=== PATIENT | female | born 1975 | race Caucasian/White ===

== ENCOUNTER 2019-02-24 16:00 | Emergency (ER) | payer OTHER ==
[~2019-02-24] VITALS: Ht 160 cm; Wt 62.6 kg
[2019-02-24 16:07] VITALS: BP 133/68
--- NOTE | 2019-02-24 16:20 | NUR ---
SUDDEN ONSET OF RIGHT SIDED LOWER BACK PAIN X TODAY DENIES INJURY/TRAUMA---NO DISCOLORATION 0R FLANK TENDERNESS NOTED AT THIS TIME
[2019-02-24] MEDS ORDERED: ACETAMINOPHEN 325 MG TAB PO ONE (16:25)
[2019-02-24] MEDS ORDERED: PANTOPRAZOLE 40 MG TABEC PO ONE (16:25)
[2019-02-24 17:22] VITALS: BP 123/64
--- NOTE | 2019-02-24 17:22 | NUR ---
Patient discharged with v/s stable. Written and verbal after care instructions given and explained. Patient alert, oriented and verbalized understanding of instructions. Ambulatory with steady gait. All questions addressed prior to discharge. ID band removed. Patient advised to follow up with PMD. Rx of miralax, keflex, docusate given. Patient educated on indication of medication including possible reaction and side effects. Opportunity to ask questions provided and answered.
== END 2019-02-24 17:22 | disposition home or self-care (01) ==
LOC: MED 16:00
DX: N39.0 Urinary tract infection, site not specified (principal); K59.00 Constipation, unspecified
CPT/HCPCS: 74018; 81002; 81025; 99283; Q0092

== ENCOUNTER 2019-02-26 11:15 | Emergency (ER) | payer OTHER ==
[~2019-02-26] VITALS: Ht 160 cm; Wt 62.6 kg
--- NOTE | 2019-02-26 11:17 | NUR ---
PATIENT AMBULATED TO BED 6 AT THIS TIME.
[2019-02-26 11:22] VITALS: BP 141/75
--- NOTE | 2019-02-26 11:36 | NUR ---
PT PRESENTS TO ED WITH C/O RT LOWER BACK PAIN X 2 DAYS. PT WAS SEEN BY ER MD ON SATURDAY FOR THE SAME S/SX, TREATING WITH ATB. TODAY PAIN RAIDATES TO RLQ ABDOMINAL PAIN. PT DIDN'T KNOW WHAT IS THE DX. AAO X4, GCS 15, AMBULATORY WITH STDEAY GAIT. RESPRIATIONS EVEN AND UNLABORED, BL LUNG CLEAR. SKIN WARM/PINK/DRY, +PMSC. ABDOMEN SOFT, NON DISTENDED, ACTIVE BOWEL SOUND X4. STATED PAIN 9/10, VS WNL. MADE AWRE OF PT STATUS. WILL CONTINUE TO MONITOR
--- NOTE | 2019-02-26 12:10 | NUR ---
PT BEING EVALUATED BY ER AT THIS TIME.
[2019-02-26] MEDS ORDERED: KETOROLAC 60 MG/2 ML VIAL IM ONE (12:30)
--- NOTE | 2019-02-26 12:47 | NUR ---
Patient discharged with v/s stable. Written and verbal after care instructions given and explained. Patient alert, oriented and verbalized understanding of instructions. Ambulatory with steady gait. All questions addressed prior to discharge. ID band removed. Patient advised to follow up with PMD. Rx oMOTRIN 800 MG, LACTULOSE 10 GM/15 ML, MINERAL OIL given. Patient educated on indication of medication including possible reaction and side effects. Opportunity to ask questions provided and answered.
[2019-02-26 12:48] VITALS: BP 124/79
== END 2019-02-26 12:47 | disposition home or self-care (01) ==
LOC: MED 11:15
DX: R10.9 Unspecified abdominal pain (principal); K59.00 Constipation, unspecified
CPT/HCPCS: 81002; 81025; 96372; 99283; J1885

== ENCOUNTER 2019-03-03 20:52 | Emergency (ER) | payer OTHER ==
[~2019-03-03] VITALS: Ht 160 cm; Wt 64.0 kg
[2019-03-03 21:04] VITALS: BP 146/70
--- NOTE | 2019-03-03 21:08 | NUR ---
PT AMBULATED TO BED #4
[2019-03-03] MEDS ORDERED: KETOROLAC 30 MG/ML VIAL IVP ONE (21:10)
--- NOTE | 2019-03-03 21:10 | NUR ---
PT C/O ABDOMINAL PAIN X 1 WEEK. PT WAS IN ER LAST WEEK WITH PAIN. PT HAS TRAVELED FROMRIGHT SIDE TO LEFT SIDE. DENIES N/V/D NO CONSTIPATION. PATIENT DENIES FEVERS, CP, SOB, COUGH. BED IN LOW LOCKED POSITION.
[2019-03-03 21:46] LABS: APPEARANCE,URINE CLEAR (CLEAR); BILIRUBIN,URINE NEGATIVE (NEGATIVE); BLOOD, URINE 3+ (NEGATIVE); COLOR,URINE YELLOW (YELLOW); LEUKOCYTE ESTERASE ,URINE TRACE (NEGATIVE); NITRITE, URINE NEGATIVE (NEGATIVE); UGLUCOSE NEGATIVE (NEGATIVE)
[2019-03-03 21:46] LABS: BASOPHILS % (AUTO) 0.4 % (0.0-2.0); EOSINOPHILS % (AUTO) 0.3 % (0.0-4.0); HEMATOCRIT 37.6 % (36-48); HEMOGLOBIN 12.5 g/dL (12.0-16.0); LYMPHOCYTES # (AUTO) 2.5 K/uL (2.5-16.5); LYMPHOCYTES % (AUTO) 35.7 % (20.5-51.1); MEAN CORPUSCULAR HEMOGLOBIN 29 pg (27-31); MEAN CORPUSCULAR HGB CONC 33 g/dL (33-37); MEAN CORPUSCULAR VOLUME 86.1 fL (80-94); MONOCYTES # (AUTO) 0.5 K/uL (0.8-1.0); MONOCYTES % (AUTO) 7.5 % (1.7-9.3); NEUTROPHILS % (AUTO) 56.1 % (42.2-75.2); PLATELET COUNT (AUTO) 209 K/uL (140-450); RED BLOOD CELL COUNT(AUTO) 4.37 MIL/uL (4.20-5.40); RED CELL DISTRIBUTION WIDTH 13.2 % (11.6-13.7); WHITE BLOOD COUNT (AUTO) 7.1 K/uL (4.8-10.8)
--- NOTE | 2019-03-03 21:48 | NUR ---
PT TAKEN TO CT
[2019-03-03 21:54] LABS: ANION GAP 17.9 (8-16); CARBON DIOXIDE 20.5 mmol/L (21-32); CREATININE 0.8 mg/dL (0.6-1.3); POTASSIUM 3.4 mmol/L (3.5-5.1)
--- NOTE | 2019-03-03 21:59 | NUR ---
PT RETURN FROM CT
[2019-03-03 22:00] LABS: ALBUMIN 4.3 g/dL (3.4-5.0); TOTAL BILIRUBIN 0.4 mg/dL (0.0-1.0)
--- NOTE | 2019-03-03 22:16 | NUR ---
PATIENT STATES PAIN HAS IMPROVED AFTER TORADOL. 02/13.
[2019-03-03 22:35] LABS: RBC,URINE 20-50 /HPF (0-5)
--- NOTE | 2019-03-03 23:24 | NUR ---
Dr. Muñiz evaluating patient at bedside.
[2019-03-03 23:57] VITALS: BP 128/68
--- NOTE | 2019-03-03 23:58 | NUR ---
Patient discharged with v/s stable. Written and verbal after care instructions given and explained. Patient alert, oriented and verbalized understanding of instructions. Ambulatory with steady gait. All questions addressed prior to discharge. ID band removed. Patient advised to follow up with PMD. Rx of NORCO, MOTRIN given. Patient educated on indication of medication including possible reaction and side effects. Opportunity to ask questions provided and answered.
== END 2019-03-03 23:58 | disposition home or self-care (01) ==
LOC: MED 20:52
DX: R10.11 Right upper quadrant pain (principal); R10.12 Left upper quadrant pain; Z98.890 Other specified postprocedural states
CPT/HCPCS: 36415; 74176; 80053; 81001; 81025; 83690; 85025; 87086; 96374; 99284; J1885

== ENCOUNTER 2019-03-27 16:09 | Emergency (ER) | payer OTHER ==
[~2019-03-27] VITALS: Ht 160 cm; Wt 64.0 kg
[2019-03-27 16:14] VITALS: BP 139/56
--- NOTE | 2019-03-27 16:45 | NUR ---
Patient ambulated to bed 4 with family. RN evaluating patient at bedside.
--- NOTE | 2019-03-27 16:46 | NUR ---
C/O ABDOMINAL PAIN RADIATING TO SHOULDER AND BACK X3 DAYS . DENIES N/V/D; SKIN IS PINK/WARM/DRY; AAOX4 WITH EVEN AND STEADY GAIT; LUNGS CLEAR BL; HR EVEN AND REGULAR; PT DENIES ANY FEVER, CP, SOB, OR COUGH AT THIS TIME; PATIENT STATES PAIN OF 10/10 AT THIS TIME; VSS; PATIENT POSITIONED FOR COMFORT; HOB ELEVATED; BEDRAILS UP X2; BED DOWN. ER MD MADE AWARE OF PT STATUS.
[2019-03-27 17:04] LABS: BASOPHILS % (AUTO) 0.4 % (0.0-2.0); EOSINOPHILS % (AUTO) 0.3 % (0.0-4.0); HEMATOCRIT 38.5 % (36-48); HEMOGLOBIN 12.8 g/dL (12.0-16.0); LYMPHOCYTES # (AUTO) 1.4 K/uL (2.5-16.5); LYMPHOCYTES % (AUTO) 17.7 % (20.5-51.1); MEAN CORPUSCULAR HEMOGLOBIN 29 pg (27-31); MEAN CORPUSCULAR HGB CONC 33 g/dL (33-37); MONOCYTES # (AUTO) 0.5 K/uL (0.8-1.0); MONOCYTES % (AUTO) 5.8 % (1.7-9.3); NEUTROPHILS # (AUTO) 6.2 K/uL (1.8-7.7); NEUTROPHILS % (AUTO) 75.8 % (42.2-75.2); PLATELET COUNT (AUTO) 172 K/uL (140-450); RED BLOOD CELL COUNT(AUTO) 4.43 MIL/uL (4.20-5.40); RED CELL DISTRIBUTION WIDTH 13.4 % (11.6-13.7); WHITE BLOOD COUNT (AUTO) 8.1 K/uL (4.8-10.8)
[2019-03-27 17:06] LABS: APPEARANCE,URINE HAZY (CLEAR); BILIRUBIN,URINE NEGATIVE (NEGATIVE); BLOOD, URINE 3+ (NEGATIVE); COLOR,URINE YELLOW (YELLOW); LEUKOCYTE ESTERASE ,URINE NEGATIVE (NEGATIVE); NITRITE, URINE NEGATIVE (NEGATIVE); UGLUCOSE NEGATIVE (NEGATIVE)
[2019-03-27 17:17] LABS: ALBUMIN 4.1 g/dL (3.4-5.0); ANION GAP 18.1 (8-16); CARBON DIOXIDE 23.5 mmol/L (21-32); CREATININE 0.9 mg/dL (0.6-1.3); POTASSIUM 3.6 mmol/L (3.5-5.1); TOTAL BILIRUBIN 0.3 mg/dL (0.0-1.0)
[2019-03-27 17:21] LABS: RBC,URINE TOO NUMEROUS TO COUN /HPF (0-5); WBC,URINE 0-5 /HPF (0-5)
[2019-03-27] MEDS ORDERED: KETOROLAC 60 MG/2 ML VIAL IM ONE (17:55)
--- NOTE | 2019-03-27 19:04 | NUR ---
endorsed pt to pm nurse.
--- NOTE | 2019-03-27 19:29 | NUR ---
DR. EVERETT BEDSIDE EVALUATING PT
--- NOTE | 2019-03-27 19:45 | NUR ---
PT SITTING UP IN BED SMILING AND SPEAKING IN CLEAR AND COMPLETE SENTENCES. STATES HER PAIN HAS DECREASED TO 2/10 AT THIS TIME; VSS. AT BEDSIDE, SAFETY PRECAUTIONS IN PLACE. WILL CONTINUE TO MONITOR.
[2019-03-27 20:23] VITALS: BP 122/64
--- NOTE | 2019-03-27 20:26 | NUR ---
Patient discharged with v/s stable. Written and verbal after care instructions given and explained. Patient alert, oriented and verbalized understanding of instructions. Ambulatory with steady gait. All questions addressed prior to discharge. ID band removed. Patient advised to follow up with PMD. Rx of IBUPROFEN WAS given. Patient educated on indication of medication including possible reaction and side effects. Opportunity to ask questions provided and answered. PT STATED PAIN AHS DECREASED TO 3/10 PRIOR TO D/C
== END 2019-03-27 20:26 | disposition home or self-care (01) ==
LOC: MED 16:09
DX: R10.30 Lower abdominal pain, unspecified (principal); M54.5 Low back pain
CPT/HCPCS: 36415; 74176; 80053; 81001; 81025; 83690; 85025; 96372; 99284; J1885

== ENCOUNTER 2022-03-18 21:16 | Emergency (ER) | payer OTHER ==
[~2022-03-18] VITALS: Ht 160 cm; Wt 64.4 kg
[2022-03-18 21:38] VITALS: BP 108/61
--- NOTE | 2022-03-18 21:47 | NUR ---
Patient ambulated to bed 8.
[2022-03-18] MEDS ORDERED: KETOROLAC 15 MG/ML VIAL IVP ONE (21:50)
--- NOTE | 2022-03-18 22:13 | NUR ---
46/F BIB SELF C/O RIGHT FLANK PAIN X1DAY. PATIENT REPORTED FEVER. DENIES ANY BLADDER OR BOWEL S/S. PER PATIENT PAIN IS SHARP 06/16, NONRAD. PER PATIENT SHES FELT LIKE THIS IN THE PAST AND IT WAS A UTI. PATIENT DENIES N/V/C/D/SOB/CP AT THIS TIME. RR ARE EVEN AND UNLABORED. SKIN WARM TO TOUCH AND INTACT. PATIENT PLACED IN GOWN WITH BED LOW AND LOCKED. SIDE RAIL UP FOR SAFETY, CALL LIGHT IN REACH. ALL NEEDS MET AT THIS TIME. LMP 03/18/22 PMHX: DENIES MEDS DENIES NKA
--- NOTE | 2022-03-18 22:27 | NUR ---
20G LEFT AC ESTABLISHED, BLOOD DRAWN AND HANDED TO LAB
[2022-03-18 22:33] LABS: BASOPHILS # (AUTO) 0.1 K/uL (0.00-0.22); BASOPHILS % (AUTO) 0.6 % (0.0-2.0); EOSINOPHILS % (AUTO) 0.5 % (0.0-4.0); HEMOGLOBIN 12.5 g/dL (12.0-16.0); LYMPHOCYTES # (AUTO) 0.9 K/uL (2.5-16.5); LYMPHOCYTES % (AUTO) 10.1 % (20.5-51.1); MEAN CORPUSCULAR HEMOGLOBIN 28 pg (27-31); MEAN CORPUSCULAR HGB CONC 33 g/dL (33-37); MEAN CORPUSCULAR VOLUME 84.2 fL (80-94); MONOCYTES # (AUTO) 0.4 K/uL (0.8-1.0); MONOCYTES % (AUTO) 3.9 % (1.7-9.3); NEUTROPHILS # (AUTO) 7.7 K/uL (1.8-7.7); NEUTROPHILS % (AUTO) 84.9 % (42.2-75.2); PLATELET COUNT (AUTO) 235 K/uL (140-450); RED BLOOD CELL COUNT(AUTO) 4.51 MIL/uL (4.20-5.40); RED CELL DISTRIBUTION WIDTH 13.7 % (11.6-13.7)
[2022-03-18 22:36] LABS: APPEARANCE,URINE CLOUDY (CLEAR); BILIRUBIN,URINE NEGATIVE (NEGATIVE); BLOOD, URINE 1+ (NEGATIVE); COLOR,URINE YELLOW (YELLOW); LEUKOCYTE ESTERASE ,URINE 2+ (NEGATIVE); NITRITE, URINE POSITIVE (NEGATIVE); PH,URINE 7.5 (5.0-9.0); UGLUCOSE TRACE (NEGATIVE)
--- NOTE | 2022-03-18 22:40 | NUR ---
SIN AT BEDSIDE ASSESSING PATIENT
[2022-03-18] MEDS ORDERED: NACL 0.9% 1,000 ML IV ONE (22:45)
--- NOTE | 2022-03-18 22:54 | NUR ---
LAB AT BEDSIDE
[2022-03-18 22:57] LABS: RBC,URINE 0-5 /HPF (0-5); WBC,URINE TOO MANY TO COUNT /HPF (0-5)
[2022-03-18 22:58] LABS: ALBUMIN 3.9 g/dL (3.4-5.0); ANION GAP 8.7 (8-16); POTASSIUM 3.7 mmol/L (3.5-5.1); TOTAL BILIRUBIN 0.5 mg/dL (0.0-1.0)
[2022-03-18] MEDS ORDERED: cefTRIAXone 1,000 MG VIAL ONE (22:58)
--- NOTE | 2022-03-18 23:12 | NUR ---
PT TAKEN TO CT
--- NOTE | 2022-03-18 23:29 | NUR ---
PATIENT RETURNED TO CT VIA W/C
--- NOTE | 2022-03-19 00:45 | NUR ---
PATIENT AMBULATED TO THE AND BACK TO BED 8
--- NOTE | 2022-03-19 01:02 | NUR ---
PATIETN IN BED AND RESTING. ALL NEEDS MET AT THIS TIME. PROVIDED MORE BLANKETS FOR COMFORT.
--- NOTE | 2022-03-19 02:20 | NUR ---
CALLED CT TO GET AN UPDATE OF CT RESULTS. CT STATED THEY CALLED AND GOT NO ETA ON RESULTS
--- NOTE | 2022-03-19 02:40 | NUR ---
PATIENT AMBULATED TO THE RR
[2022-03-19] MEDS ORDERED: CEPH-588 PO (02:45)
--- NOTE | 2022-03-19 02:55 | NUR ---
IV removed, catheter intact and site benign. Applied folded 4x4 gauze and tape to stop bleeding.
[2022-03-19 03:00] VITALS: BP 110/60
--- NOTE | 2022-03-19 03:00 | NUR ---
Patient discharged with v/s stable. Written and verbal after care instructions given on pyelonephritis and explained. Patient alert, oriented and verbalized understanding of instructions. Ambulatory with steady gait. All questions addressed prior to discharge. ID band removed. Patient advised to follow up with PMD. Rx of Cephalexin given.
--- NOTE | 2022-03-19 03:01 | NUR ---
Chart checked and completed.
== END 2022-03-19 03:00 | disposition home or self-care (01) ==
LOC: MED 21:16
DX: N12 Tubulo-interstitial nephritis, not specified as acute or chronic (principal); Z79.2 Long term (current) use of antibiotics; Z90.710 Acquired absence of both cervix and uterus
CPT/HCPCS: 36415; 74176; 80053; 81001; 81025; 83605; 83690; 84703; 85025; 87040; 87086; 96361; 96365; 96375; 99284; J0696; J1885; J7030

== ENCOUNTER 2023-03-10 14:11 | Emergency (ER) | payer OTHER ==
[~2023-03-10] VITALS: Ht 160 cm; Wt 66.2 kg
[~2023-03-10 14:11] MED LIST: CEPH-588 PO
[2023-03-10 14:15] VITALS: BP 124/72
[2023-03-10] MEDS ORDERED: ACET-10509 PO (15:58)
[2023-03-10] MEDS ORDERED: ONDA-188 SL (15:58)
--- NOTE | 2023-03-10 16:10 | NUR ---
Patient discharged with v/s stable. Written and verbal after care instructions FOR UTERINE FIBROIDS given and explained. Patient alert, oriented and verbalized understanding of instructions. Ambulatory with steady gait. All questions addressed prior to discharge. ID band removed. Patient advised to follow up with PMD. Rx of TYLENOL XTRA STRENGTH AND ZOFRAN given.Opportunity to ask questions provided and answered.
--- NOTE | 2023-03-10 17:11 | NUR ---
The patient's care was reviewed and supervised by [facility], RN.
== END 2023-03-10 16:10 | disposition home or self-care (01) ==
LOC: MED 14:11
DX: D25.9 Leiomyoma of uterus, unspecified (principal); N93.9 Abnormal uterine and vaginal bleeding, unspecified; R11.2 Nausea with vomiting, unspecified; Z79.899 Other long term (current) drug therapy
CPT/HCPCS: 99283